=== PATIENT | female | born 1985 | race Caucasian/White ===

== ENCOUNTER 2019-11-02 17:27 | Inpatient (IN) ==
[2019-11-02] MEDS ORDERED: CITRIC ACID/SODIUM CITRATE 30 ML UDCUP PO ONE (18:15)
[2019-11-02] MEDS ORDERED: LACTATED RINGERS 1,000 ML IV ONE (18:20)
[2019-11-02 18:32] LABS: Basophils % 0.2 % (0.0-0.8); Eosinophils % 0.2 % (0.00-10.9); Hematocrit 33.8 VOL% (35.7-47.0); Hemoglobin 10.7 GM/DL (12.0-16.0); Immature Granulocytes % 0.7 %; Immature Granulocytes Absolute 0.12 #; Lymphocytes % 12.6 % (21.3-54.2); Mean Corpuscular HGB Conc 31.7 GM/DL (32-36); Mean Corpuscular Volume 83.3 FL (87-102); Mean Platelet Volume 10.8 FL (9.6-12.0); Monocytes % 4.1 % (1.7-12.7); Neutrophils % 82.2 % (38.7-73.9); Platelet Count 346 T/CUMM (130-400); Red Blood Count 4.06 MC/CUMM (3.8-5.5); Red Cell Distribution Width 14.6 % (9.3-17.3); White Blood Count 16.3 T/CUMM (4-12)
[2019-11-02] MEDS ORDERED: OXYTOCIN/LR 20 UNIT/1,000 ML BAG IV ONE ×3 (18:53→22:01)
[2019-11-02] MEDS ORDERED: miSOPROStoL 200 MCG TABLET ONE (18:54)
[2019-11-02] MEDS ORDERED: SODIUM CHLORIDE 0.9% 0 ML IV ONE (18:54)
[2019-11-02] MEDS ORDERED: TRANEXAMIC ACID 1,000 MG/10 ML VIAL ONE (18:54)
[2019-11-02] MEDS ORDERED: METHYLERGONOVINE 0.2 MG/1 ML AMP ONE (18:55)
[2019-11-02] MEDS ORDERED: FAMOTIDINE 20 MG/2 ML VIAL IV ONE (19:00)
[2019-11-02] MEDS ORDERED: CLINDAMYCIN INJ 900 MG in PREMIX 1 EACH IV ONE (19:00)
[2019-11-02] MEDS ORDERED: LACTATED RINGERS 1,000 ML IV SCH ×2 (19:00→22:30)
[2019-11-02] MEDS ORDERED: BUPIVACAINE MPF 0.5% /EPI 30 ML VIAL ONE (20:04)
[2019-11-02 20:05] LABS: RPR Confirm - Less than 1 yr REACTIVE (Nonreactive)
[2019-11-02] MEDS ORDERED: DEXAMETHASONE 4 MG/1 ML VIAL ONE (20:05)
[2019-11-02] MEDS ORDERED: ONDANSETRON 4 MG/2 ML VIAL IV PRN (22:01)
[2019-11-02] MEDS ORDERED: RHO(D) IMMUNE GLOBULIN 300 MCG SYRINGE IM ONE (22:01)
[2019-11-02] MEDS ORDERED: ACETAMINOPHEN 325 MG TABLET PO PRN (22:01)
[2019-11-02] MEDS ORDERED: ONDANSETRON 4 MG/2 ML VIAL ONE (22:16)
[2019-11-02] MEDS ORDERED: PHENYLEPHRINE 10 MG/1 ML VIAL IV ONE (22:17)
[2019-11-02] MEDS ORDERED: PHENYLEPHRINE 1 MG/10 ML SYRINGE IV ONE (22:17)
[2019-11-02] MEDS ORDERED: MORPHINE 10 MG/10 ML VIAL ONE (22:37)
[2019-11-02] MEDS ORDERED: BUPIVACAINE SPINAL 0.75% 2 ML AMP SPINAL ONE (22:37)
[2019-11-02] MEDS ORDERED: diphenhydrAMINE 50 MG/1 ML VIAL IV ONE (23:25)
[2019-11-02] MEDS ORDERED: diphenhydrAMINE 50 MG/1 ML VIAL ONE (23:32)
[2019-11-03] MEDS ORDERED: diphenhydrAMINE CAP 25 MG CAPSULE PO PRN (05:03)
[2019-11-03 05:41] LABS: Basophils % 0.1 % (0.0-0.8); Hematocrit 30.8 VOL% (35.7-47.0); Hemoglobin 9.9 GM/DL (12.0-16.0); Immature Granulocytes % 0.7 %; Immature Granulocytes Absolute 0.16 #; Lymphocytes # 1.3 10*3/uL (1.4-4.0); Mean Corpuscular HGB Conc 32.1 GM/DL (32-36); Mean Corpuscular Volume 81.7 FL (87-102); Mean Platelet Volume 10.7 FL (9.6-12.0); Monocytes % 1.7 % (1.7-12.7); Neutrophils % 91.5 % (38.7-73.9); Platelet Count 318 T/CUMM (130-400); Red Blood Count 3.77 MC/CUMM (3.8-5.5); Red Cell Distribution Width 14.4 % (9.3-17.3)
[2019-11-03 06:04] LABS: Band Neutrophils 5 % (0-10); Hypochromasia 1+; Lymphocytes 4 % (20-55); Microcytosis 1+; Ovalocytes Slight; Platelet Estimate Normal; Segmented Neutrophils 90 % (50-85); Total Cells Counted 100
[2019-11-03] MEDS: MULTIVITAMIN (PRENATAL) TABLET PO SCH (09:54)
[2019-11-03] MEDS: DOCUSATE SODIUM 100 MG CAPSULE PO SCH ×2 (09:54→20:24)
[2019-11-03] MEDS: SIMETHICONE CHEW 80 MG TABLET PO PRN (09:55)
[2019-11-03] MEDS: IBUPROFEN 800 MG TABLET PO PRN (16:38)
[2019-11-03] MEDS: MAGNESIUM HYDROXIDE SUSP 30 ML UDCUP PO PRN (20:24)
[2019-11-04] MEDS: oxyCODONE/ACETAMINOPHEN 5-325 MG TABLET PO PRN ×2 (02:00→09:10)
[2019-11-04] MEDS: IBUPROFEN 800 MG TABLET PO PRN ×3 (02:00→20:55)
[2019-11-04] MEDS ORDERED: INFLUENZA VIRUS VACCINE 0.5 ML SYRINGE IM ONE (09:00)
[2019-11-04] MEDS: MAGNESIUM HYDROXIDE SUSP 30 ML UDCUP PO PRN (09:10)
[2019-11-04] MEDS: MULTIVITAMIN (PRENATAL) TABLET PO SCH (09:10)
[2019-11-04] MEDS: DOCUSATE SODIUM 100 MG CAPSULE PO SCH ×2 (09:10→21:05)
[2019-11-05] MEDS: oxyCODONE/ACETAMINOPHEN 5-325 MG TABLET PO PRN ×2 (03:49→19:19)
[2019-11-05] MEDS ORDERED: BISACODYL 10 MG SUPP RECTAL PRN (08:12)
[2019-11-05] MEDS: IBUPROFEN 800 MG TABLET PO PRN ×2 (08:17→19:47)
[2019-11-05] MEDS: MULTIVITAMIN (PRENATAL) TABLET PO SCH (08:17)
[2019-11-05] MEDS: DOCUSATE SODIUM 100 MG CAPSULE PO SCH ×2 (08:17→20:04)
[2019-11-05 11:40] LABS: Basophils % 0.3 % (0.0-0.8); Eosinophils # 0.4 10*3/uL (0.0-0.87); Eosinophils % 3.8 % (0.00-10.9); Hematocrit 26.9 VOL% (35.7-47.0); Hemoglobin 8.7 GM/DL (12.0-16.0); Immature Granulocytes % 0.5 %; Immature Granulocytes Absolute 0.05 #; Lymphocytes # 2.4 10*3/uL (1.4-4.0); Mean Corpuscular HGB Conc 32.3 GM/DL (32-36); Mean Corpuscular Volume 82.8 FL (87-102); Mean Platelet Volume 10.2 FL (9.6-12.0); Monocytes % 6.6 % (1.7-12.7); Neutrophils % 65.8 % (38.7-73.9); Platelet Count 293 T/CUMM (130-400); Red Blood Count 3.25 MC/CUMM (3.8-5.5); Red Cell Distribution Width 14.4 % (9.3-17.3); White Blood Count 10.4 T/CUMM (4-12)
[2019-11-06 07:26] VITALS: BP 102/58
[2019-11-06] MEDS: DOCUSATE SODIUM 100 MG CAPSULE PO SCH (09:11)
[2019-11-06] MEDS: SIMETHICONE CHEW 80 MG TABLET PO PRN (09:11)
[2019-11-06] MEDS: MAGNESIUM HYDROXIDE SUSP 30 ML UDCUP PO PRN (09:11)
[2019-11-06] MEDS: MULTIVITAMIN (PRENATAL) TABLET PO SCH (16:10)
== END 2019-11-06 16:05 | disposition home or self-care (01) | DRG 540 ==
LOC: N.LDOUT 17:27 → N.LD 17:40 → N.OB 11-03 11:01
PROVIDERS: ADMIT Obstetrics & Gynecology; ATTEND Obstetrics & Gynecology
PROC: LDCSECT (ICD-10-PCS; 2019-11-02 18:45)